=== PATIENT | female | born 1955 | race Two or more races ===

== ENCOUNTER 2021-08-30 17:35 | Emergency (ER) | payer OTHER ==
[~2021-08-30] VITALS: Ht 157.5 cm; Wt 111.1 kg
[2021-08-30] MEDS ORDERED: GABAPENTIN250 MG/51 (18:10)
[2021-08-30] MEDS ORDERED: PLAVIX75 MG (18:10)
[2021-08-30] MEDS ORDERED: CATAPRES0.3 MG (18:10)
[2021-08-30] MEDS ORDERED: SYNTHROID88 MCG (18:11)
[2021-08-30] MEDS ORDERED: LOSARTAN POTASS50 MG (18:11)
== END 2021-08-30 22:18 | disposition home or self-care (01) ==
LOC: ER 17:35
DX: R07.89 Other chest pain (principal)

== ENCOUNTER → 2022-12-19 06:00 | Outpatient (CLI) | payer OTHER ==
[~2022-12-19] VITALS: Ht 154.9 cm; Wt 93.9 kg
[~2022-12-19 06:00] MED LIST: CARVEDILOL25 M1 PO; CATAPRES0.3 MG; CELLCEPT500 MG PO; COZAAR50 MG PO; ECOTRIN81 MG PO; GABAPENTIN250 MG/51; KAPVAY0.1 MG PO; LOSARTAN POTASS50 MG; PEPCID AC20 MG PO; PLAVIX75 MG; PREDNISO PO; SYNTHROID88 MCG; XARELT PO; [UNRECOGNIZED DRUG - OTHER] PO
[2022-12-19 10:20] LABS: HEMOGLOBIN 12.5 g/dL (12.0-15.00); MEAN CELL VOLUME 80.1 fL (80.00-100.00); MEAN CORPUSCULAR HEMOGLOBIN 26.3 pg (27.00-32.0); MEAN CORPUSCULAR HGB CONC 32.8 g/dl (32.0-36.0); PLATELET COUNT 131 K/uL (150-450); RED BLOOD COUNT 4.74 M/uL (4.00-6.00); RED CELL DISTRIBUTION WIDTH 15.4 % (11.5-14.5)
[2022-12-19 10:20] LABS: URINE APPEARANCE Clear; URINE BILIRRUBIN Negative (NEGATIVE); URINE BLOOD Negative; URINE COLOR Yellow; URINE LEUKOCYTE Negative; URINE NITRATE Negative; URINE PROTEIN Negative (NEGATIVE); URINE UROBILINOGEN 0.2 E.U./dl
[2022-12-19 10:25] LABS: URINE BACTERIA 158.7 uL (0.0-1933); URINE EPITHELIAL CELLS 26.8 uL (0.0-38.8)
[2022-12-19 10:28] LABS: URINE GLUCOSE >=1000 MG/DL (NEGATIVE); URINE RBC 0.2 uL (0.0-20.8)
[2022-12-19 10:50] LABS: INR 1.03; PARTIAL THROMBOPLASTIN TIME 28.9 SECONDS (22.0-34.0); PROTHROMBIN TIME 10.8 SECONDS (9.0-11.5)
[2022-12-19 11:02] LABS: ALBUMIN 3.6 gm/dL (3.4-5.0); BILIRUBIN TOTAL 0.62 mg/dL (0.3-1.2); CALCIUM 9.4 mg/dL (8.5-10.1); CREATININE SERUM 1.21 mg/dL (0.55-1.02); GFR 44.38; GLOBULINA 3.9 G/DL (2.4-3.5); POTASSIUM 3.74 mEq/L (3.5-5.1); TOTAL PROTEIN 7.5 gm/dL (6.4-8.2)
== END | disposition home or self-care (01) ==
LOC: LAB 06:00 → EDSTATUS 12-25 07:45 → SURH 12-25 07:45
PROVIDERS: ATTEND Orthopaedic Surgery
DX: M17.11 Unilateral primary osteoarthritis, right knee (principal); Z01.811 Encounter for preprocedural respiratory examination; Z01.812 Encounter for preprocedural laboratory examination; Z01.810 Encounter for preprocedural cardiovascular examination